=== PATIENT | female | born 1940 | race Caucasian/White ===

== ENCOUNTER 2018-03-01 07:34 | Emergency (ER) ==
[2018-03-01 07:34] VITALS: BMI 21.1
[2018-03-01 07:37] VITALS: BP 159/84; TEMP 96.9
--- NOTE | 2018-03-01 07:43 | ED.PDOC ---
General ED Provider: Dr. CURTIS CAMPOS Chief Complaint: Abdominal Pain Stated Complaint: CC: Abdominal pain. HPI: Onset earlier this AM awakening her from sleep. States had eaten Pizza last PM -had fixed it with extra Tomato Sauce and Pepperroni. Previoiusly has experiece similar problems. Sl Nauseated which passed but mid epigastric discomfort has persisted which radiated to her back. Denies diaphoresis or chest pain. Previoulsy worked up for Gall Bladder disease which was negative. Has pepcid AC but did not take; took beano instead. Had persistent pain upon awakening this morning so came in for evaluation Time Seen by Physician: 07:41 Mode of Arrival: Walk-In Information Source: Patient Exam Limitations: No limitations Primary Care Provider: CURTIS PECK Nursing and Triage Documentation Reviewed and Agree: Yes Does patient meet sepsis criteria?: No System Inflammatory Response Syndrome: Not Applicable Sepsis Protocol: For patient's 13 years and over: Temp is 96.8 and below OR 101 and greater Pulse >90 BPM Resp >20/minute Acutely Altered Mental Status Are patient's symptoms suggestive of a new infection, such as: -Pneumonia -Skin, Soft Tissue -Endocarditis -UTI -Bone, Joint Infection -Implantable Device -Acute Abdominal Infection -Wound Infection -Meningitis -Blood Stream Catheter Infection -Unknown GI Complaint Exam - Abdominal Pain Complaint/Exam Onset: Gradual Duration: 12 hrs Symptoms Are: Still present Timing: Constant Initial Severity: Moderate Current Severity: Moderate Location of Pain: Epigastric Radiates To: Reports: Back Character: Reports: Aching, Colicky Aggravating: Reports: Food, Position, Eating Alleviating: Reports: None Associated Signs and Symptoms: Reports: Back pain, Nausea. Denies: Diaphoresis , Fever, Cough, Chest pain, Dizziness, Constipation, Blood in stool, Dysuria, Urinary frequency, Decreased urine output, Decreased appetite, Vaginal bleeding , Vaginal discharge, Vomiting, Diarrhea, Sore throat, Decreased activity AAA Risk Factors: Reports: None Cardiac Risk Factors: Reports: None Ectopic Risk Factors: Reports: None Ovarian Torsion Risk Factors: Reports: None Surgical Obstruction Risk Factors: Reports: None Related Surgical History: Reports: None Abdominal Findings: Present: Other (Soft with midepigastric tenderness without involuntary guarding). Absent: Abdominal distention, Unequal femoral pulses, Rebound tenderness, Peritoneal signs, McBurney's Point tender, CVA Tenderness, Hernia, Inguinal swelling Differential Diagnoses: Gastroenteritis, PUD, Other (Gastritis) Review of Systems - Review Of Systems Constitutional: Reports: No symptoms, Weakness, Loss of appetite Eyes: Reports: No symptoms Ears, Nose, Mouth, Throat: Reports: No symptoms Respiratory: Reports: No symptoms Cardiac: Reports: No symptoms GI: Reports: Nausea : Reports: No symptoms Musculoskeletal: Reports: No symptoms Skin: Reports: No symptoms Neurological: Reports: No symptoms Endocrine: Reports: No symptoms Hematologic/Lymphatic: Reports: No symptoms All Other Systems: Reviewed and Negative Past Medical History - Past Medical History Endocrine: Reports: Hypothyroid (prev total thyroidectomy-20 yrss ago) Cardiovascular: Reports: None Respiratory: Reports: None Hematological: Reports: None Gastrointestinal: Reports: None Genitourinary: Reports: None Neuro/Psych: Reports: None, Migraine (Has take propranol ol for 20 years) Musculoskeletal: Reports: None Cancer: Reports: None Last Menstrual Period: HYSTERECTOMY - Surgical History General Surgical History: Reports: Unknown - Family History Family History: Reports: Unknown - Social History Smoking Status: Never smoker Hx Substance Use: No Alcohol Screening: None - Immunizations Tetanus Shot up to Date: No Physical Exam - Physical Exam Appearance: Well-appearing, Well-nourished, Thin Ill-appearing: Mild Pain Distress: Moderate Eyes: OLY, EOMI, Conjunctiva clear (Sclera anti icteric) ENT: Ears normal, Nose normal, Oropharynx normal Neck: Supple Respiratory: Airway patent, Breath sounds clear, Breath sounds equal, Respirations nonlabored Cardiovascular: RRR, No rub, No murmur, Bradycardia (54) GI/: Soft, Bowel sounds normal, Tender Musculoskeletal: Normal strength, ROM intact, No edema, No calf tenderness Skin: Warm, Dry, Normal color Neurological: Sensation intact, Motor intact, Reflexes intact, Cranial nerves intact, Alert, Oriented, Alert to verbal Interpretation - Radiology Interpretation Radiology Interpretation By: Radiologist Radiology Results: Negative Exam Interpreted: CT Scan (Normal CT of Abdomen/Pelvis) Xray Comments: Interpreted at 0848/ Reviewed 0855 - EKG Interpretation Time of EKG #1: 09:25 (No acute abnromalities) Rate: Enrique Rhythm: Other (septal infarct age undetermined) Re-Evaluation - Re-Evaluation Time of Re-Evaluation: 08:40 (Now admits to eatting several Jalapeno Poppers Friday ) Status: Improved (Pain reduced from 10 to 6, ) Pain Level: 6/10 Appearance: NAD Additional Comments: Abdomen soft with reduced tenderness in midepigastrium Critical Care Note - Critical Care Note Total Time (mins): 60 Course - Course Hematology/Chemistry: 03/01/18 08:05 03/01/18 08:05 Orders, Labs, Meds: Lab Review 03/01/18 03/01/18 03/01/18 08:00 08:05 08:05 WBC 4.06 L RBC 4.22 Hgb 13.4 Hct 40.3 MCV 95.5 MCH 31.8 H MCHC 33.3 RDW Coeff of Amairani 12.4 Plt Count 128 L Immature Gran % (Auto) 0.2 Neut % (Auto) 55.5 Lymph % (Auto) 35.0 [place] % (Auto) 6.9 Eos % (Auto) 1.7 Baso % (Auto) 0.7 Immature Gran # (Auto) 0.0 Neut # (Auto) 2.3 Lymph # (Auto) 1.4 [place] # (Auto) 0.3 L Eos # (Auto) 0.1 Baso # (Auto) 0.0 Sodium 139.2 Potassium 3.92 Chloride 103.4 Carbon Dioxide 34.9 H Anion Gap 4.82 BUN 19.0 H Creatinine 0.84 Estimated GFR (MDRD) 66.00 BUN/Creatinine Ratio 22.61 Glucose 125.5 H Calcium 9.39 Total Bilirubin 0.54 AST 30.4 ALT 18.6 Alkaline Phosphatase 61.1 Total Protein 6.56 Albumin 3.92 Globulin 2.64 Albumin/Globulin Ratio 1.48 Amylase 92.4 Lipase 205.5 Urine Color Yellow Urine Clarity Clear Urine pH 5.5 Ur Specific [place] 1.020 Urine Protein Negative Urine Glucose (UA) Negative Urine Ketones Negative Urine Blood Negative Urine Nitrite Negative Urine Bilirubin Negative Urine Urobilinogen 0.2 Ur Leukocyte Esterase Trace Urine Microscopic WBC 0-2 Ur Squamous Epith Cells 0-2 Urine Bacteria Trace Orders Category Date Time Status EKG-(ED ONLY) Stat CARDIO 03/01/18 09:06 Ordered AMYLASE Stat LAB 03/01/18 08:05 Completed CBC W/ AUTO DIFF Stat LAB 03/01/18 08:05 Completed CMP [COMPREHENSIVE METABOLIC PANEL] Stat LAB 03/01/18 08:05 Completed LIPASE Stat LAB 03/01/18 08:05 Completed UA [URINALYSIS C & S IF INDICATED] Stat LAB 03/01/18 08:00 Completed Mag-Al Plus//Lidocaine [Gi Cocktail] MEDS 03/01/18 07:50 Discontinued 30 ml PO ONCE STA Ranitidine HCl [Zantac] MEDS 03/01/18 08:52 Discontinued 150 mg PO ONCE STA CT ABDOMEN/PELVIS WO CONTRAST Stat RADS 03/01/18 08:26 Completed Medications Discontinued Medications Generic Name Dose Route Start Last Admin Trade Name Omar PRN Reason Stop Dose Admin Al Hydroxide/Mg Hydroxide 30 ml 03/01/18 07:50 03/01/18 07:55 Gi Cocktail PO 03/01/18 07:51 30 ml ONCE STA Administration Ranitidine HCl 150 mg 03/01/18 08:52 03/01/18 08:59 Zantac PO 03/01/18 08:53 150 mg ONCE STA Administration Vital Signs: Temp Pulse Resp BP Pulse Ox 03/01/18 07:35 96.9 F L 57 L 18 159/84 H 98 Departure - Departure Time of Disposition: 09:30 Disposition: HOME SELF-CARE Discharge Problem: Gastritis, Sinus bradycardia Instructions: Gastritis (ED), Bradycardia (ED) Condition: Good Pt referred to PMD for follow-up: Yes (Dr Peck) IPMP verified?: No Additional Instructions: Clear /full liquids Advance to [place] diet Avoid spicey foods/ Mylanta 15 ml -30 ml 4 times daily after meals and bedtime X 5 days then as needed Take Zantac as directed Discussed EKG and findings. Prescriptions: Ranitidine HCl [Zantac] 150 mg PO BIDAC #30 tablet Allergies/Adverse Reactions: Allergies No Known Allergies Allergy (Verified 03/01/18 07:35) Home Medications: Ambulatory Orders Propranolol HCl [Inderal Xl] 120 mg PO DAILY 06/17/15 Calcium Polycarbophil 625 mg PO DAILY 03/01/18 Clonazepam [Klonopin] 0.5 mg PO DAILY 03/01/18 Krill/Om-3/Dha/Epa/Phospho/Ast [Megared [place]-3 Krill Oil Sfgl] 1 cap PO DAILY 03/01/18 Oxybutynin Chloride [Ditropan Xl] 5 mg PO DAILY 03/01/18 Ranitidine HCl [Zantac] 150 mg PO BIDAC #30 tablet 03/01/18 Disposition Discussed With: Patient
[2018-03-01] MEDS ORDERED: GI COCKTAIL PO STA (07:50)
[2018-03-01] MEDS ORDERED: ZANTAC PO STA (08:52)
--- NOTE | 2018-03-01 08:53 | CT ---
Exam: CT of the abdomen and pelvis without contrast History: Midepigastric pain Technique: [address] of the abdomen and pelvis without intravascular contrast FINDINGS: The lung bases are clear. No significant liver abnormality. The adrenals, pancreas and s pleen are unremarkable. The stomach and hiatus are unremarkable.The gallbladder appears normal. Kid neys and proximal collecting system are unremarkable. The appendix is normal. Bowel loops demonstra te normal caliber. No inflamatory change seen in the mesentery or retroperitoneum. Atherosclerotic calcification of the aorta without aneurysm. Pelvic genitourinary structures appear normal. Pelvic bowel loops are unremarkable. No inflammatory change in the pelvic fat. No acute abnormality of the abdominal or pelvic skeleton. Impression: 1. No inflammatory process, bowel or urinary obstruction is seen no acute findings of the abdomen or pelvis.
== END 2018-03-01 09:40 | disposition home or self-care (01) ==
LOC: ED 07:34
DX: K29.70 Gastritis, unspecified, without bleeding (principal); R00.1 Bradycardia, unspecified; R53.1 Weakness; E03.9 Hypothyroidism, unspecified; Z79.899 Other long term (current) drug therapy; K21.9 Gastro-esophageal reflux disease without esophagitis
CPT/HCPCS: 36415; 80053; 81001; 82150; 83690; 85025; 93005; 93010; 96361; 96365; 96374; 99283; 99284

== ENCOUNTER 2018-03-01 16:06 | Emergency (ER) ==
[2018-03-01 16:07] VITALS: BMI 21.1
[2018-03-01 16:12] VITALS: BP 156/81; TEMP 97.3
--- NOTE | 2018-03-01 17:44 | ED.PDOC ---
General ED Provider: Dr. CURTIS CAMPOS Chief Complaint: Abdominal Pain Stated Complaint: Upper abdominal pain. Was seen earlier today for similar problem. Was evaluated, treated and discharged to home in improved condition. State after arriving home felt better and she consumed some pudding. Decided to take Mylanta liquid for prophylaxsis against heartburn after which she developed intense upper abdominal pain radiating to her back. Denied nausea or vomiting. Time Seen by Physician: 17:30 Mode of Arrival: Walk-In Information Source: Patient Exam Limitations: No limitations Primary Care Provider: CURTIS PECK Seen Within Last 72 Hours for Same Complaint By: ED Nursing and Triage Documentation Reviewed and Agree: Yes Does patient meet sepsis criteria?: No System Inflammatory Response Syndrome: Not Applicable Sepsis Protocol: For patient's 13 years and over: Temp is 96.8 and below OR 101 and greater Pulse >90 BPM Resp >20/minute Acutely Altered Mental Status Are patient's symptoms suggestive of a new infection, such as: -Pneumonia -Skin, Soft Tissue -Endocarditis -UTI -Bone, Joint Infection -Implantable Device -Acute Abdominal Infection -Wound Infection -Meningitis -Blood Stream Catheter Infection -Unknown GI Complaint Exam - Abdominal Pain Complaint/Exam Onset: Sudden Duration: 45 min Symptoms Are: Still present Timing: Constant Initial Severity: Severe Current Severity: Moderate Location of Pain: Epigastric Radiates To: Reports: Back Character: Reports: Burning Aggravating: Reports: None Alleviating: Reports: None Associated Signs and Symptoms: Reports: Nausea. Denies: Diaphoresis, Fever, Cough, Chest pain, Dizziness, Back pain, Constipation, Blood in stool, Dysuria, Urinary frequency, Decreased urine output, Decreased appetite, Vaginal bleeding , Vaginal discharge, Vomiting, Diarrhea, Sore throat, Decreased activity AAA Risk Factors: Reports: None Cardiac Risk Factors: Reports: None Ectopic Risk Factors: Reports: None Ovarian Torsion Risk Factors: Reports: None Surgical Obstruction Risk Factors: Reports: None Related Surgical History: Reports: None Abdominal Findings: Absent: Pulsatile mass, Abdominal distention, Unequal femoral pulses, Rebound tenderness, Peritoneal signs, McBurney's Point tender, CVA Tenderness, Hernia, Inguinal swelling Differential Diagnoses: Gastroenteritis, Pancreatitis, GB, PUD Quality Indicators for AMI: EKG in 10min. Review of Systems - Review Of Systems Constitutional: Reports: Loss of appetite Eyes: Reports: No symptoms Ears, Nose, Mouth, Throat: Reports: No symptoms Respiratory: Reports: No symptoms Cardiac: Reports: No symptoms GI: Reports: Abdominal pain, Poor appetite : Reports: No symptoms Musculoskeletal: Reports: No symptoms Skin: Reports: No symptoms Neurological: Reports: No symptoms Endocrine: Reports: No symptoms Hematologic/Lymphatic: Reports: No symptoms All Other Systems: Reviewed and Negative Past Medical History - Past Medical History Endocrine: Reports: Hypothyroid (prev total thyroidectomy-20 yrss ago) Cardiovascular: Reports: None Respiratory: Reports: None Hematological: Reports: None Gastrointestinal: Reports: None (previous hx of similiar symptoms with negative workup), Other Genitourinary: Reports: None Neuro/Psych: Reports: None, Migraine (Has take propranol ol for 20 years) Musculoskeletal: Reports: None Cancer: Reports: None Last Menstrual Period: HYSTERECTOMY - Surgical History General Surgical History: Reports: Unknown - Family History Family History: Reports: Unknown - Social History Smoking Status: Never smoker Hx Substance Use: No Alcohol Screening: None - Immunizations Tetanus Shot up to Date: No Physical Exam - Physical Exam Appearance: Ill-appearing Ill-appearing: Mild Pain Distress: Mild Eyes: OLY, EOMI, Conjunctiva clear ENT: Ears normal, Nose normal, Oropharynx normal Respiratory: Airway patent, Breath sounds clear, Breath sounds equal, Respirations nonlabored Cardiovascular: RRR, Pulses normal, No rub, No murmur GI/: Soft, No masses, Bowel sounds normal, Tender Musculoskeletal: Normal strength, ROM intact, No edema, No calf tenderness Skin: Warm, Dry, Normal color Neurological: Sensation intact, Motor intact, Reflexes intact, Cranial nerves intact, Alert, Oriented Psychiatric: Affect appropriate, Mood appropriate Interpretation - Radiology Interpretation Radiology Interpretation By: Radiologist Radiology Results: Negative Exam Interpreted: CT Scan (abdomen and pelvis with contrast) Re-Evaluation - Re-Evaluation Time of Re-Evaluation: 19:30 Status: Improved Vital Signs Stable: Yes Appearance: NAD Lungs: Clear Skin: Warm and Dry Neuro: Alert and Oriented X3 CV: RRR Physician Notification - Case Discussed Physician Notified: Dr Peck Time of Notification: 19:30 (to follow up in office in 24 hrs) Critical Care Note - Critical Care Note Total Time (mins): 60 Course - Course Hematology/Chemistry: 03/01/18 17:45 03/01/18 17:45 Orders, Labs, Meds: Lab Review 03/01/18 03/01/18 17:45 17:45 WBC 3.62 L RBC 3.90 L Hgb 12.5 Hct 36.8 L MCV 94.4 MCH 32.1 H MCHC 34.0 RDW Coeff of Amairani 12.4 Plt Count 127 L Immature Gran % (Auto) 0.0 Neut % (Auto) 45.2 Lymph % (Auto) 44.8 [place] % (Auto) 7.2 Eos % (Auto) 2.2 Baso % (Auto) 0.6 Immature Gran # (Auto) 0.0 Neut # (Auto) 1.6 L Lymph # (Auto) 1.6 [place] # (Auto) 0.3 L Eos # (Auto) 0.1 Baso # (Auto) 0.0 Sodium 139.5 Potassium 4.05 Chloride 104.1 Carbon Dioxide 34.7 H Anion Gap 4.75 BUN 17.1 H Creatinine 0.77 Estimated GFR (MDRD) 73.00 BUN/Creatinine Ratio 22.20 Glucose 91.0 Calcium 9.17 Total Bilirubin 0.45 AST 27.7 ALT 17.6 Alkaline Phosphatase 52.2 L Total Protein 6.40 Albumin 3.79 Globulin 2.61 Albumin/Globulin Ratio 1.45 Amylase 83.7 Lipase 162.3 Orders Category Date Time Status EKG-(ED ONLY) Stat CARDIO 03/01/18 17:44 Completed NPO REMINDER: IMAGING ONCE CARE 03/01/18 17:46 Completed IV [ED IV/MEDIPORT/POWERPORT] .ONCE EMERGENCY 03/01/18 17:44 Active AMYLASE Stat LAB 03/01/18 17:45 Completed CBC W/ AUTO DIFF Stat LAB 03/01/18 17:45 Completed CMP [COMPREHENSIVE METABOLIC PANEL] Stat LAB 03/01/18 17:45 Completed LIPASE Stat LAB 03/01/18 17:45 Completed 0.9 % Sodium Chloride [Saline Flush] MEDS 03/01/18 17:44 Discontinued 1 syr IVF PRN PRN Pantoprazole Sodium [Protonix IV] MEDS 03/01/18 17:47 Discontinued 40 mg IVP ONCE STA Sodium Chloride 0.9% [Sodium Chloride] 1,000 ml MEDS 03/01/18 17:[address] ABDOMEN/PELVIS W/WO CONTRAS Stat RADS 03/01/18 17:45 Completed Medications Discontinued Medications Generic Name Dose Route Start Last Admin Trade Name Freq PRN Reason Stop Dose Admin Sodium Chloride 1,000 mls @ 1,000 mls/hr 03/01/18 17:46 03/01/18 18:21 Sodium Chloride IV 03/01/18 18:45 1,000 mls/hr BOLUS STA Administration Pantoprazole Sodium 40 mg 03/01/18 17:47 03/01/18 18:24 Protonix Iv IVP 03/01/18 17:48 40 mg ONCE STA Administration Sodium Chloride 1 syr 03/01/18 17:44 Saline Flush IVF PRN PRN To flush IV Vital Signs: Temp Pulse Resp BP Pulse Ox 03/01/18 16:08 97.3 F L 46 L 18 156/81 H 99 Departure - Departure Time of Disposition: 18:55 Disposition: HOME SELF-CARE Discharge Problem: Abdominal pain, Gastritis, GERD (gastroesophageal reflux disease) Discharge Problem: (Ruled Out): Abdominal pain in female Instructions: Clear Liquid Diet (ED) Condition: Good Pt referred to PMD for follow-up: Yes (24 hr) IPMP verified?: No Additional Instructions: Stay on clear liquid diet for 24 hrs then if improved may advance to bland diet but Avoid acidic food and beverages Rx Protonix Prescriptions: Pantoprazole Sodium [Protonix] 40 mg PO ONCE #15 tablet. Allergies/Adverse Reactions: Allergies No Known Allergies Allergy (Verified 03/01/18 16:08) Home Medications: Ambulatory Orders Propranolol HCl [Inderal Xl] 120 mg PO DAILY 06/17/15 Calcium Polycarbophil 625 mg PO DAILY 03/01/18 Clonazepam [Klonopin] 0.5 mg PO DAILY 03/01/18 Krill/Om-3/Dha/Epa/Phospho/Ast [Megared [place]-3 Krill Oil Sfgl] 1 cap PO DAILY 03/01/18 Oxybutynin Chloride [Ditropan Xl] 5 mg PO DAILY 03/01/18 Pantoprazole Sodium [Protonix] 40 mg PO ONCE #15 tablet. 03/01/18 Ranitidine HCl [Zantac] 150 mg PO BIDAC #30 tablet 03/01/18 Disposition Discussed With: Patient, Family, Other (Dr Peck)
[2018-03-01] MEDS ORDERED: SODIUM CHLORIDE 1,000 ML IV STA (17:46)
[2018-03-01] MEDS ORDERED: PROTONIX IV IVP STA (17:47)
--- NOTE | 2018-03-01 18:32 | CT ---
EXAM: CT of the abdomen pelvis with and without contrast History: Severe abdominal pain. Comparison: CT abdomen pelvis 03/01/2018 Technique: Multiplanar CT images through the abdomen pelvis were obtained with and without the admin istration of IV contrast Findings: Lung bases are clear. No acute osseous abnormalities. No renal stones and no hydronephrosis. The appendix is normal. No ureteral calculi. There is a foc al enhancement along the gallbladder wall. 1 cm simple hepatic cyst. Stomach is not well distended. No splenic lesions. Adrenal glands are unremarkable. No pancreatic lesions and no peripancreatic inflammation. No renal masses and no perinephric inflammation. No bowel obstruction. No free air a nd no ascites. Mild to moderate bladder distension but no bladder wall thickening. No perirectal in flammation. Adnexal structures appear appropriate for patient's age. No lymphadenopathy. Impression: 1. Focal enhancement along the gallbladder wall could represent polyps, stones or prominent gallblad lina folds. Recommend further evaluation with right upper quadrant abdominal ultrasound. 2. Simple hepatic cyst
== END 2018-03-01 19:16 | disposition home or self-care (01) ==
LOC: ED 16:06
DX: K29.70 Gastritis, unspecified, without bleeding (principal); K21.9 Gastro-esophageal reflux disease without esophagitis
CPT/HCPCS: 36415; 80053; 82150; 83690; 85025; 93005; 93010; 96361; 96365; 99284

== ENCOUNTER 2018-03-05 06:28 | Outpatient (CLI) ==
--- NOTE | 2018-03-06 09:27 | STRESSMOD ---
Date of Test: 03/05/18 Ordering Physician: DR. CURTIS CLEARY Occupation: RETIRED Reason for Exam: SHOULDER/BACK PAIN, MITRAL VALVE PROLAPSE Height: 60" Weight: 108 LBS Current Medications: ASCORBIC ACID, FIBERCON, PREMARIN, ANTIVERT, TRILEPTAL, DITROPAN XL, INDERAL, IMITREX Resting EKG: SINUS RHYTHM/ NO ACUTE CHANGES Target Heart Rate: 123/145 S-T SEGMENT STAGE MPH/GRADE HEART RATE BPM BLOOD PRESSURE mmhg RHYTHM +/- ELEVATION DEPRESSION SYMPTOMS At Rest 45 BPM 112/64 MMHG SR X NONE 1 1.7/0% 70 BPM 122/60 MMHG SR X NONE 2 1.7/5% 75 BPM 126/60 MMHG SR X NONE 3 1.7/10% 82 BPM 130/64 MMHG SR X NONE 4 2.5/12% 5 3.4/14% Immediately After 101 BPM 134/72 MMHG SR X FATIGUE Minutes Post Exercise Minutes Post Exercise DURATION OF EXERCISE: 11:58 MAXIMUM HEART RATE REACHED: 101 BPM REASON FOR TERMINATION: FATIGUE 99% OXYGEN SATURATION WITH EXERCISE ON ROOM AIR METS 7.0 INTERPRETATION: 1. NO EVIDENCE OF ISCHEMIA FROM RESTING HEART RATE 45 BPM TO 101 BPM (ON BETA SHONA) 2. DID NOT REACH TARGET HEART RATE 3. NO CHEST PAIN OR DISCOMFORT 4. FEW PVC'S WITH EXERCISE (ISOLATED) 5. BLOOD PRESSURE RESPONSE NORMAL 6. GOOD EXERCISE TOLERANCE NORMAL LEFT VENTRICULAR CONTRACTILITY--RESTING AND POST EXERCISE MTDD
--- NOTE | 2018-03-06 09:30 | ECHOSTRESS ---
Date of Exam: 03/05/18 Ordering Physician: DR. CURTIS CLEARY Reason for Echo: SHOULDER AND BACK PAIN, STRESS TEST--NO ISCHEMIA (INCONCLUSIVE) M-Mode Normal Adult Results LV Dimensions Normal Adult Results AoV Opening excursions >1.6 LVEDD-base- 3.5-5.8 Ao root dimensions 2.0-3.7 LVESD-base- 3.1-4.6 L. Atrium dimensions 1.9-3.8 Post. Wall thickness 0.8-1.1 IV septum (thickness) 0.7-1.2 Post. Wall excursion 0.72-1.3 Septal motion Systolic motion R. Ventricular cavity 1.5-2.0 LVEF 60% Paradoxical septal wall motion 2-D: NORMAL LEFT VENTRICULAR CONTRACTILITY--RESTING AND POST EXERCISE M-MODE: MV: AV: TV: PV: CHAMBER SIZE: WALL MOTION: NORMAL LEFT VENTRICULAR CONTRACTILITY--RESTING AND POST EXERCISE PERICARDIUM: INTERPRETATION: 1. NORMAL LEFT VENTRICULAR CONTRACTILITY--RESTING AND POST EXERCISE MTDD
== END 2018-03-05 06:29 | disposition home or self-care (01) ==
LOC: CAR 06:28
PROVIDERS: ATTEND Family Medicine
DX: R07.9 Chest pain, unspecified (principal)